=== PATIENT | female | born 1975 | race Caucasian/White ===

== ENCOUNTER 2020-08-05 08:22 | Outpatient (CLI) | payer BC, SELFPAY ==
[2020-08-05 10:04] LABS: Cortisol Baseline 9.15 ug/dL
== END 2020-08-05 08:23 | disposition home or self-care (01) ==
PROVIDERS: PCP Internal Medicine Endocrinology, Diabetes & Metabolism; Visit Provider Internal Medicine Endocrinology, Diabetes & Metabolism
DX: R94.7 Abnormal results of other endocrine function studies (principal)
CPT/HCPCS: 36415; 82533; 96372; J0834